=== PATIENT | female | born 1975 | race Caucasian/White ===

== ENCOUNTER → 2016-03-16 | Outpatient (CLI) | payer MEDICARE ==
[~2016-03-16] MED LIST: ALPR0.5T99 PO; ASPI1TAB69 PO; ASPI325T PO; CALC1TAB87 PO; CITA20TA4 PO; DIGO0.25 PO; DULO1CAP3 PO; DYAZ PO; ESCI20TA PO; FERR1TAB36 PO; FIORTAB4 PO; FOLI1TAB4 PO; FURO20TA PO; GABA400C5 PO; GABA600T OR; HYDR-3583 PO; HYDR200T3 PO; LANO0.2510 PO; LEFL1TAB3 PO; LEVO25TA36 PO; LEVO50TA4 PO; LISI-363 PO; MELA5TAB13 PO; METF500T PO; METH2.5T PO; METO100T PO; PANT40TA3 PO; PRAV40TA2 PO; PRED2.5T PO; TOPR50TA PO; TRAM50TA PO; VITA10002 PO; WELL150T OR; ZOLP5TAB3 PO
[2016-03-16 12:51] LABS: AUTOMATED NEUTROPHIL # 6.9 TH/MM3 (1.8-7.7); BASOPHIL % 0.4 % (0.0-2.0); EOSINOPHIL # 0.2 TH/MM3 (0-0.4); EOSINOPHIL % 1.6 % (0.0-4.0); HEMATOCRIT 31.9 % (35.0-46.0); HEMO FLAGS DIFF FINAL; LYMPH % 20.5 % (9.0-44.0); MEAN CELL VOLUME 93.6 FL (80.0-100.0); MEAN CORPUSCULAR HEMOGLOBIN 31.7 PG (27.0-34.0); MEAN CORPUSCULAR HGB CONC 33.8 % (32.0-36.0); MONO % 7.5 % (0.0-8.0); PLATELET COUNT 337 TH/MM3 (150-450); RED CELL DISTRIBUTION WIDTH 16.5 % (11.6-17.2); WHITE BLOOD COUNT 9.9 TH/MM3 (4.0-11.0)
[2016-03-16 13:17] LABS: ANION GAP 8 MEQ/L (5-15); BICARBONATE 28.1 MEQ/L (21.0-32.0); BLOOD UREA NITROGEN 8 MG/DL (7-18); CHLORIDE 101 MEQ/L (98-107); GLOMERULAR FILTRATION RATE 72 ML/MIN (>89); GLUCOSE,FASTING 86 MG/DL (74-99); POTASSIUM 3.7 MEQ/L (3.5-5.1); SODIUM (NA) 137 MEQ/L (136-145)
[2016-03-16 13:21] LABS: BHCG SCREEN QUALITATIVE LESS THAN 1 MIU/ML (0-5)
[2016-03-16 13:58] LABS: BLOOD, URINE NEG (NEG); GLUCOSE,URINE NEG (NEG); KETONE, URINE NEG (NEG); NITRITE,URINE NEG (NEG); SQUAMOUS EPITHELIAL CELL URINE <1 /hpf (0-5); URINE COLOR YELLOW (YELLW/STRAW)
== END ==
LOC: CPRE 11:54
PROVIDERS: ATTEND Obstetrics & Gynecology
DX: Z01.812 Encounter for preprocedural laboratory examination (principal); N92.0 Excessive and frequent menstruation with regular cycle
CPT/HCPCS: 36415; 80048; 81001; 84703; 85025

== ENCOUNTER → 2016-03-24 | Day surgery (SDC) | payer MEDICARE ==
[~2016-03-24] VITALS: Ht 172.7 cm; Wt 88.9 kg
[~2016-03-24] MED LIST changes: +ACETAMINOPHEN 1000 MG/100 ML VIAL IV ONE; -ALPR0.5T99 PO; +APREPITANT 40 MG CAP PO SCH; -ASPI325T PO; +BUPIVACAINE HCL PF 0.25% 30 ML VIAL ONE; -CITA20TA4 PO; +DICLOFENAC SODIUM 37.5 MG/ML VIAL IV PUSH ONE; +DO NOT ADM ANY ANTICOAGULANT DRUGS XX PRN; +DOCUSATE SODIUM 100 MG CAP PO SCH; -DYAZ PO; +FAMOTIDINE 20 MG/2 ML VIAL ONE; -FIORTAB4 PO; -GABA600T OR; +GABAPENTIN 400 MG CAP PO ONE; +HYDROCORTISONE SOD SUCCINATE 100 MG VIAL IV PUSH SCH; +HYDROmorphone HCL PF 1 MG/ML VIAL IVP PRN; +HYDROmorphone HCL PF 2 MG/ML VIAL ONE; +INSULIN HUMAN REGULAR 1,000 UNITS/10 ML VIAL SQ PRN; +LACTATED RINGER'S 1000 ML INJ 1,000 ML IV ONE; +LACTATED RINGER'S 1000 ML INJ 1,000 ML IV SCH; +LACTATED RINGER'S 1000 ML IV SCH; -LANO0.2510 PO; -LEVO25TA36 PO; -LISI-363 PO; +LORazepam 0.5 MG TAB PO PRN; -MELA5TAB13 PO; +METOPROLOL TARTRATE 25 MG TAB PO PRN; +MIDAZOLAM HCL 2 MG/2 ML VIAL ONE; +NEOSTIGMINE 3 MG/3 ML SYR IV ONE; +NORMOSOL R INJ 1,000 ML IV ONE; +ONDANSETRON HCL 4 MG/2 ML VIAL IV PUSH ONE; +ONDANSETRON HCL 4 MG/2 ML VIAL IVP PRN; +PROMETHAZINE INJ 25 MG/ML VIAL IM PRN; +PROPOFOL 200 MG/20 ML AMP IV ONE; +SODIUM CHLORID 0.9% 500 ML IV SCH; +SODIUM CHLORIDE 0.9% FLUSH 5 ML FLUSH FLUSH PRN; +SODIUM CHLORIDE 0.9% FLUSH 5 ML FLUSH FLUSH SCH; +SUGAMMADEX SODIUM 200 MG/2 ML VIAL IV PUSH ONE; -TOPR50TA PO; -TRAM50TA PO; -WELL150T OR; +ceFAZolin 2 GM PREMIX 50 ML IV SCH; +diphenhydrAMINE HCL 25 MG CAP PO PRN; +fentaNYL CITRATE 250 MCG/5 ML AMP ONE; +oxyCODONE/ACETAMINOPHEN 5 MG/325 MG TAB PO PRN
[2016-03-24 08:48] VITALS: BP 101/51; PULSE 63; RESP 16; TEMP 98.9; O2SAT 97
[2016-03-24 14:47] VITALS: BP 135/67; PULSE 63; RESP 16; TEMP 98.4; O2SAT 96
--- NOTE | 2016-03-24 19:36 | EKG ---
Date Performed: 03/24/2016 Time Performed: 09:30:33 PTAGE: 40 years EKG: Sinus rhythm NORMAL ECG NO PREVIOUS TRACING DOCTOR: Deng Mcconnell Interpretating Date/Time 03/24/2016 19:35:23
--- NOTE | 2016-03-30 14:27 | MP ---
cc: GILLES LANDON M.D. DATE OF PROCEDURE 03/24/2016 PREOPERATIVE DIAGNOSIS Patient with recurrent menorrhagia, dysmenorrhea, failed endometrial ablation. PROCEDURE Total laparoscopic hysterectomy, bilateral salpingo-oophorectomy, cystourethroscopy, lysis of adhesions. POSTOPERATIVE DIAGNOSIS Patient with recurrent menorrhagia, dysmenorrhea, failed endometrial ablation. SURGEON MD Jus ANESTHESIA General with endotracheal intubation. ESTIMATED BLOOD LOSS 50 cc. DRAINS Dixon to gravity. OPERATIVE FINDINGS The patient had enlarged uterus that was soft and consistent with adenomyosis. The adnexa were normal bilaterally. Previous tubal ligation was identified. The patient had extensive scarring between the posterior bladder wall and the lower uterine segment. The patient did have a previous history of section. INDICATION FOR PROCEDURE Patient will chronic history of heavy menstrual bleeding not regulated by conservative measures. Attempt at endometrial ablation was unsuccessful in regulating the heavy bleeding. After discussing her options, she elected for definitive surgery by hysterectomy. The patient also requested both ovaries be removed at the time of her hysterectomy. PROCEDURE Consent was signed. The patient received Ancef 2 grams prophylactically. She also received hydrocortisone 100 mg IV. The patient underwent general anesthesia with endotracheal intubation. She was carefully positioned with appropriate padding in dorsal lithotomy position using Lex stirrups that were padded on lower extremities and sequentials on the lower extremities bilaterally. After the patient was prepped and draped, time-out was conducted, agreed by all present in the room. Dixon catheter was inserted by sterile technique draining clear urine. Weir speculum was used to examine the cervix which was small. The cervix was secured with a single-tooth tenaculum and then the cervix and uterine cavity were explored and dilated with a dilated to accommodate small V-CARE device. The V-CARE was secured and retractors were removed. The patient's abdomen was examined. She had previous laparoscopic incision within the umbilicus and a well-healed transverse Pfannenstiel incision. The umbilical port site was injected with 0.25% plain Marcaine. A 5-mm visible port trocar was used and inserted directly into the peritoneal cavity without complication. The accessory ports were then placed after placing the patient in steep Trendelenburg positioning and 8-mm trocars were placed in the right and left flank in avascular plane. The umbilical port was then switched to a 12-mm port to accommodate the camera. The da Branden patient cart was then side docked on the patient's right side. The #1 arm was attached with a monopolar scissor and the #2 arm was attached with a [place] bipolar grasper. Good articulation was noted. A 0-degree lens camera was utilized. Good visualization was noted. Once placement of the patient cart was secured, appropriate energy sources were attached to the instruments and then direction was placed on the surgeon cart. Visualization was noted. Anatomy was visualized and appropriate landmarks were identified. Dissection initiated by the adhesions involving the rectosigmoid to the left sidewall. The round ligament was divided allowing entry into the retroperitoneal space which was opened to identify the infundibular pelvic vessels, skeletonizing the vessels appropriately, identifying the ureter which was out of the operative field and then ligating the vessels and creating a pedicle. The pedicle was lysed. Dissection then was brought back forward to the anterior broad leaf of the broad ligament. The bladder was dissected away from the lower uterine segment in a meticulous fashion and then the uterine artery and vein were skeletonized and ligated hemostatically on the left side. Attention was then redirected to the right side where the same dissection was initiated, dividing the round ligament, opening the right retroperitoneal space, identifying the ureter and hen isolating the infundibular pelvic vessels, the vessels hemostatically, creating a pedicle, allowing both ovaries to be left intact with the uterus. Once this dissection was complete, the uterine artery and vein were skeletonized appropriately. Hemostasis of the vessels was established and then a colpotomy incision was made posteriorly and then brought around to the anterior colpotomy and creating a circumferential incision to allow removal of the uterus intact with the remnant of the fallopian tubes, ovaries and cervix. The vaginal cuff was dry. The #1 arm was switched to a Rolo-Cut needle intermodal truck driver. A #1 Stratafix 7 cm suture was placed through the vaginal opening by the plumber assistant and then closure of the cuff was made in a linear fashion, closing the cuff with good result. Suture needles were trimmed flush with the peritoneum. A sponge stick was then applied by the plumber assistant to check the integrity of the closure which was excellent. Completion of the laparoscopic portion of the case was then complete. The da Branden patient cart was undocked. Straight laparoscopy was reintroduced, suture needles were retrieved. The pelvis was irrigated with copious normal saline. Examination off pressure revealed no active bleeding, no hematoma. All pedicle sites were dry. The umbilical port was then closed with a Crossbow device using a #1 Vicryl suture, closing the umbilical incision with good proximity. The pneumoperitoneum was then decompressed. Observation revealed no active bleeding and then the trocar sites were closed with a subcuticular stitch of 4-0 Monocryl using some Steri-Strips and Band-Aids. After completion of the abdominal closure, a brief cystourethroscopy was performed using the 5-mm laparoscope. Backfilling of the bladder with normal saline was accomplished. Examination of the bladder was intact. There was no interruption, no tear, no perforation. Both ureteral orifices were peristalsing normally with good result, filling the bladder. No bleeding was incurred. After removal of the cystoscope, the Dixon catheter was reinserted draining clear urine. Examination of the cuff again was dry. After completion of the procedure, the patient was extubated, taken to the recovery room on room air. The final count was correct. MD HU Thornton/KEN /12:29 PM /2:10 PM
== END | disposition home or self-care (01) ==
LOC: HSDC 08:03
PROVIDERS: ATTEND Obstetrics & Gynecology
DX: N92.0 Excessive and frequent menstruation with regular cycle (principal); N94.6 Dysmenorrhea, unspecified; Z01.810 Encounter for preprocedural cardiovascular examination
CPT/HCPCS: 00840; 58571; 86850; 86900; 86901; 88307; 93005; J0131; J0690; J1170; J1720; J2250; J2405; J2710; J3010; J7120; J8501; J1130